=== PATIENT | female | born 1985 | race Caucasian/White ===

== ENCOUNTER 2018-01-18 23:37 | Emergency (ER) | payer SELFPAY ==
[~2018-01-18] VITALS: Ht 170.2 cm; Wt 63.6 kg
[2018-01-19 00:08] VITALS: BP 118/78
== END 2018-01-19 00:15 | disposition home or self-care (01) ==
LOC: EMS 23:38
DX: S80.11XA Contusion of right lower leg, initial encounter (principal); S80.12XA Contusion of left lower leg, initial encounter; R00.0 Tachycardia, unspecified; Y04.0XXA Assault by unarmed brawl or fight, initial encounter; Y93.89 Activity, other specified; Y92.89 Other specified places as the place of occurrence of the external cause; Y99.8 Other external cause status
CPT/HCPCS: 93005; 99283